=== PATIENT | female | born 1970 | race Caucasian/White ===

== ENCOUNTER → 2022-05-10 11:14 | Outpatient (CLI) | payer OTHER, SELFPAY ==
[2022-05-10 11:51] LABS: COVID19 -Nasal RAPID Negative (Negative)
== END ==
PROVIDERS: Referring Provider Orthopaedic Surgery; Visit Provider Orthopaedic Surgery
DX: Z20.822 Contact with and (suspected) exposure to COVID-19 (principal)
CPT/HCPCS: 87635; C9803

== ENCOUNTER 2022-05-11 13:04 | Day surgery (SDC) | payer OTHER, SELFPAY ==
[2022-04-18 11:00] VITALS: BMI 43.3
[2022-05-11] VITALS (14 sets, daily range): BP systolic 115–138; BP diastolic 54–79; PULSE 74–100; RESP 14–20; TEMP 36.3–36.7; O2SAT 92–99; BMI 43.3
[2022-05-11] MEDS: LACTATED RINGERS 1,000 ML 42 ML IV (13:56)
--- NOTE | 2022-05-11 15:35 | PM.PREOP ---
Pre-operative Note COVID-19 COVID-19 status: Negative Result date/Date tested (Pos, Neg/Pending): 05/10/22 Interval Note History & Physical reviewed/Exam performed by Physician: Yes Changes to H&P: No
[2022-05-11] MEDS: CELECOXIB 200 MG CAPSULE PO (15:42)
[2022-05-11] MEDS: PREGABALIN 75 MG CAPSULE PO (15:42)
[2022-05-11] MEDS: CEFAZOLIN 2 GM IN 0.9 % NACL 100 ML IV (16:25)
--- NOTE | 2022-05-11 16:48 | P.PCN_ITS ---
Procedures Date/Time Date of procedure: 05/11/22 Time of procedure: 15:50 General Procedure description: Ultrasound guided interscalene brachial plexus nerve block for post op pain control after left shoulder arthroscopy by Dr. Pa. Risk and benefits of procedure discussed with patient. ASA monitoring applied to patient. O2 given via nasal cannula. 2 mg Versed and 50 mcg fentanyl given for procedural sedation. Skin site was prepped with chlorhexidine and allowed to fully dry. Sterile gloves, mask, hat and probe cover were used to maintain sterility. 2% lidocaine and 30ga needle was used to make a small skin wheal at needle inserti on site. Under ultrasound guidance, a 21ga 50mm Pajunk needle was directed into the interscalene groove (middle/anterior scalenes) near the brachial plexus. Patient reported no parasthesias. After negative aspiration, 20 mL 0.5% ropivacaine and 10mg dexamethasone were injected around brachial plexus. Patient tolerated procedure well. Hard copy ultrasound photo scanned into [employer].
--- NOTE | 2022-05-11 16:48 | SUR.OPER ---
RIGHT Lateral on padded OR bed with arroyo bag positioner, head on pillow, gel axillary roll in place, bottom leg bent with gel pad under knee to foot, upper leg straight and supported with pillows. Operative arm secured in shoulder positioning suspension device. non-operative arm secured on padded arm board. Safety belt at hip, tape over blanket securing lower legs.
[2022-05-11] MEDS: ONDANSETRON 4 MG/2 ML INJ IV (17:29)
--- NOTE | 2022-05-11 17:34 | P.OP_ITS ---
Operative Date/Time/Diagnoses Date of procedure: 05/11/22 Time of procedure: 17:35 Pre-op diagnosis: Left shoulder impingement and acromioclavicular osteoarthritis. Post-op diagnosis: same Procedure & Clinicians Procedure: 1. Left shoulder arthroscopic distal clavicle excision 2. Left shoulder arthroscopic major debridement of bursa, coracoacromial ligament, and acromion. Same procedure as scheduled: Yes Indications: The patient is a 51-year-old woman who has had a previous open [employer] reconstruction. She has developed ongoing worsening left shoulder pain that has not responded to non operative measures. After discussion the risks benefits and alternatives to the above noted surgery, she has agreed to proceed. Risks discussed included but were not limited to: Failure to improve, stiffness, infection, nerve damage, deep venous thrombosis, pulmonary embolism, stroke, myocardial infarction, permanent paralysis and . Click Yes if Unassisted: Yes Anesthesia Type: General and Peripheral nerve block Operative Notes Findings: 1. Normal glenohumeral cartilage 2. Glenohumeral labrum with widespread mild degenerative fraying and evidence of prior open suture repair to the glenoid rim in the anterior inferior portion. This appeared to be intact although somewhat down the anterior face of the glenoid. 3. Subscapularis intact 4. Biceps normal 5. Supraspinatus intact 6. Infraspinatus intact 7. No evidence of significant abnormality in the axillary pouch 8. Intact rotator cuff from the bursal surface 9. Type 2 acromion with impingement lesion 10. Significant acromioclavicular osteoarthritis 11. Full range of motion and no pathologic laxity on exam under anesthesia. Closure Type: primary Specimen(s): none sent Estimated Blood Loss (mL): 10 Blood products transfused: none Procedure in detail: Patient was seen in the preoperative area where she identified the left shoulder as the operative site this was marked with my initials. She underwent an interscalene block and was taken to the operating room and placed on the operating room in the supine position where she underwent the induction of general anesthetic. She was given preoperative antibiotics. Her shoulders were examined under anesthesia with findings given above. She was then repositioned in the right lateral decubitus position with an axillary roll and padding for all pressure points. She was stabilized in this position using a arroyo bag. The left arm was prepared from the wrist to the base of the neck with ChloraPrep in the usual fashion and draped through sterile drapes. The left arm was placed in 10 lb of balanced skin suspension. Subcutaneous landmarks were outlined on the skin with a marking pen and portal sites selected. The posterior portal was created and the arthroscope introduced into the glenohumeral joint. Diagnostic arthroscopy was performed with the result given above. There was no need for surgical arthroscopy in the glenohumeral joint so the arthroscope was removed and placed into the subacromial bursa through the posterior portal. A lateral portal was created for instrumentation, a bursectomy was performed for visualization. There was a type 2 acromion with an obvious impingement lesion so this was converted to a type 1 acromion using the cutting block technique. The coracoacromial ligament was released from the acromion during this portion the procedure. The distal 8-10 mm of clavicle was then removed due to the ob vious arthritic change in the acromioclavicular joint. At the conclusion of this, all arthroscopic equipment was removed. The wounds were closed with 4-0 Monocryl and Steri-Strips. Dressings of sterile 4x4s and ABD and Tegaderm were applied. An ABD was placed in the axilla and the arm was placed in a sling. She was transferred to the recovery room in good condition having tolerated the procedure well. Complications: none Post-operative Condition: stable Disposition: PACU Plan for aftercare: She will be discharged today. She will follow up in the office in 10-14 days. She will be started on a standard postoperative protocol for subacromial decompression distal clavicle excision. A prescription for Epworth has been sent to her pharmacy.
[2022-05-11] MEDS: SCOPOLAMINE 1 PATCH TOP (18:27)
[2022-05-11] MEDS: ePHEDrine 50 MG/ML VIAL 25 MG IM (18:30)
--- NOTE | 2022-05-11 19:28 | SUR.PHASEII ---
Late entry: Pt experiencing severe nausea with emesis 250 mL. IV bolus, notified Dr. Jones orders received. After medications given, updated Dr. Hutchins on pt condition and verified okay to discharge pt home. Pt stable, voided, and dressed in good spirits with occasional waves of nausea but no emesis. Discharge instructions reviewed with patient and sister, time allowed for questions. Encouraged to stay on clear liquids tonight sipping on Gatorade mixed 50/50 with water, and if tolerated may increase diet in the morning. IV DC'd intact, small amt of drainage noted on dressing unchanged since marked on receiving in PACU. Pt denies pain, block effective, sling in place. This RN transported pt via w/c to ER entrance to meet family who will transport patient home. Pt enter vehilce independently without any issues and commented how much better I feel already outside. Left pt in family care in stable condition.
== END 2022-05-11 19:00 | disposition home or self-care (01) ==
PROVIDERS: Referring Provider Orthopaedic Surgery; Visit Provider Orthopaedic Surgery
PROC: (CPT 29805; principal; 2022-05-11 14:45)
DX: M19.012 Primary osteoarthritis, left shoulder (principal); M75.42 Impingement syndrome of left shoulder; J45.909 Unspecified asthma, uncomplicated; F41.9 Anxiety disorder, unspecified; E66.01 Morbid (severe) obesity due to excess calories; Z68.41 Body mass index [BMI] 40.0-44.9, adult
CPT/HCPCS: 29824; 29826; 64415; J0171; J0690; J1100; J2250; J2405; J2704; J3010